=== PATIENT | male | born 1965 | race African-American/Black ===

== ENCOUNTER 2025-07-08 18:46 | Inpatient (IN) | payer OTHER ==
[~2025-07-08] VITALS: Ht 167.6 cm; Wt 50.8 kg
[~2025-07-08 18:46] MED LIST: NOCURR
[2025-07-08] MEDS: ATORVASTATIN CALCIUM 40 MG TABLET PO ONE (20:14)
[2025-07-08] MEDS: NITROGLYCERIN 0.4 MG SUBLINGUAL TABLET #25 SL ONE (20:15)
[2025-07-08] MEDS: ASPIRIN 81 MG CHEWABLE TABLET PO ONE (20:15)
[2025-07-08] MEDS ORDERED: 0.9% SODIUM CHLORIDE 10 ML SYRINGE IVP ONE (20:48)
[2025-07-08] MEDS ORDERED: SODIUM CHLORIDE 0.9% 100 ML ONE (20:48)
[2025-07-08] MEDS ORDERED: IOHEXOL 350 MG/ML 100 ML VIAL ONE (20:48)
[2025-07-08 20:50] LABS: PLATELET COUNT (AUTO) 184 K/uL (150-450); RED BLOOD CELL COUNT(AUTO) 3.89 MIL/uL (4.50-5.90); RED CELL DISTRIBUTION WIDTH 15.1 % (11.5-14.5); WHITE BLOOD COUNT (AUTO) 5.3 K/uL (4.5-11.0)
[2025-07-08 20:59] LABS: CALCIUM, TOTAL 9.0 mg/dL (8.8-10.5); CREATININE 1.13 mg/dL (0.60-1.30); GLOMERULAR FILTR. RATE CALC > 60 mL/min (>60); GLUCOSE,RANDOM 88 mg/dL (70-110); SODIUM SERUM 140 mmol/L (136-145); UREA NITROGEN, BLOOD 13 mg/dL (7-18)
[2025-07-08 21:08] LABS: TROPONIN I-HIGH SENSITIVITY 85 ng/L (<76)
[2025-07-08 21:09] LABS: ASPARTATE AMINOTRANSFERASE 34.0 U/L (15-37); CREATINE KINASE, TOTAL ONLY 113.0 U/L (39-308); TOTAL PROTEIN, SERUM 6.6 g/dL (6.4-8.2)
[2025-07-08 21:13] LABS: RBC MORPHOLOGY COMMENT ABNORMAL RBC MORPH
[2025-07-08] MEDS: ONDANSETRON HCL 4 MG/2 ML VIAL IVP ONE (21:48)
[2025-07-08] MEDS: MORPHINE SULFATE 4 MG/ML SYRINGE IVP ONE (21:48)
[2025-07-08] MEDS ORDERED: NITROGLYCERIN 0.4 MG SUBLINGUAL TABLET #25 SL PRN (22:15)
[2025-07-08] MEDS ORDERED: ONDANSETRON HCL 4 MG/2 ML VIAL IVP PRN (22:15)
[2025-07-08 22:40] LABS: TROPONIN I-HIGH SENSITIVITY 96 ng/L (<76)
[2025-07-08 23:01] LABS: COVID AG,FIA SOURCE NASAL SWAB
[2025-07-08 23:08] LABS: INFLUENZA TYPE A NEGATIVE FOR TYPE A (NEGATIVE); INFLUENZA TYPE B NEGATIVE FOR TYPE B (NEGATIVE); SARS-COV2 (COVID) ANTIGEN,FIA Negative (Negative)
[2025-07-08] MEDS: HEPARIN SODIUM,PORCINE 5,000 UNITS/ML VIAL SQ SCH (23:22)
[2025-07-09 03:00] VITALS: BP 147/87; PULSE 80; RESP 18; TEMP 98.6; O2SAT 99
[2025-07-09 03:44] LABS: APPEARANCE,URINE CLEAR (CLEAR); GLUCOSE, URINE (UA) NEGATIVE (NEGATIVE); LEUKOCYTE ESTERASE ,URINE NEGATIVE (NEGATIVE); NITRATE,URINE NEGATIVE (NEGATIVE); OCCULT BLOOD,URINE NEGATIVE (NEGATIVE)
[2025-07-09 03:45] LABS: SPECIFIC GRAVITIY, URINE 1.030 (1.003-1.030)
[2025-07-09 06:25] LABS: CALCIUM, TOTAL 8.9 mg/dL (8.8-10.5); CREATININE 1.24 mg/dL (0.60-1.30); GLOMERULAR FILTR. RATE CALC > 60 mL/min (>60); GLUCOSE,RANDOM 89 mg/dL (70-110); SODIUM SERUM 140 mmol/L (136-145); UREA NITROGEN, BLOOD 15 mg/dL (7-18)
[2025-07-09 06:57] LABS: TROPONIN I-HIGH SENSITIVITY 108 ng/L (<76)
[2025-07-09 07:27] LABS: PLATELET COUNT (AUTO) 181 K/uL (150-450); RED BLOOD CELL COUNT(AUTO) 3.84 MIL/uL (4.50-5.90); RED CELL DISTRIBUTION WIDTH 15.2 % (11.5-14.5); WHITE BLOOD COUNT (AUTO) 5.1 K/uL (4.5-11.0)
[2025-07-09 07:54] VITALS: BP 140/83; PULSE 91; RESP 20; TEMP 98.1; O2SAT 97
[2025-07-09] MEDS: ASPIRIN 81 MG CHEWABLE TABLET PO SCH (08:01)
[2025-07-09] MEDS: FUROSEMIDE 20 MG/2 ML VIAL IVP SCH ×2 (08:02→20:52)
[2025-07-09] MEDS: DOCUSATE SODIUM 100 MG CAPSULE PO SCH (08:02)
[2025-07-09 08:23] VITALS: BP 132/84; PULSE 82; RESP 18; TEMP 97.7; O2SAT 95
[2025-07-09 08:36] LABS: RBC MORPHOLOGY COMMENT ABNORMAL RBC MORPH
[2025-07-09 11:46] VITALS: BP 126/81; PULSE 78; RESP 18; TEMP 97.2; O2SAT 95
[2025-07-09 16:12] VITALS: BP 132/82; PULSE 76; RESP 18; TEMP 97.3; O2SAT 95
[2025-07-09 16:12] LABS: PH,URINE DRUG SCREEN 5.5 (5.0-8.0)
[2025-07-09 16:20] LABS: ALCOHOL, URINE DRUG SCREEN NEGATIVE (NEGATIVE); AMPHET/METH SCREEN,URINE NEGATIVE (NEGATIVE); BARBITURATE SCREEN, URINE NEGATIVE (NEGATIVE); CANNABINOID SCREEN,URINE POSITIVE (NEGATIVE); COCAINE SCREEN,URINE POSITIVE (NEGATIVE); METHADONE SCREEN, URINE NEGATIVE (NEGATIVE)
[2025-07-09 20:00] VITALS: BP 128/83; PULSE 90; RESP 20; TEMP 97.5; O2SAT 100
[2025-07-09] MEDS: ATORVASTATIN CALCIUM 10 MG TABLET PO SCH (20:51)
[2025-07-09] MEDS: MORPHINE SULFATE 2 MG/ML SYRINGE IVP PRN (20:52)
[2025-07-10 00:13] VITALS: BP_SYST 134; BP_DIAS 30; BP_DIAS 80; PULSE 93; RESP 18; TEMP 97.5; O2SAT 99
[2025-07-10 05:10] VITALS: BP 136/83; PULSE 85; RESP 18; TEMP 97.4; O2SAT 100
[2025-07-10 06:24] LABS: PLATELET COUNT (AUTO) 172 K/uL (150-450); RED BLOOD CELL COUNT(AUTO) 3.84 MIL/uL (4.50-5.90); RED CELL DISTRIBUTION WIDTH 15.1 % (11.5-14.5); WHITE BLOOD COUNT (AUTO) 4.1 K/uL (4.5-11.0)
[2025-07-10 06:33] LABS: CALCIUM, TOTAL 8.6 mg/dL (8.8-10.5); CREATININE 1.76 mg/dL (0.60-1.30); GLOMERULAR FILTR. RATE CALC 48.0 mL/min (>60); GLUCOSE,RANDOM 104.0 mg/dL (70-110); SODIUM SERUM 137.0 mmol/L (136-145); UREA NITROGEN, BLOOD 20.0 mg/dL (7-18)
[2025-07-10 06:35] LABS: CHOL/HDL RATIO 1.9 (4.2-7.3); LDL CHOL (CALC.) 38.0 mg/dL (0-130)
[2025-07-10 07:45] LABS: RBC MORPHOLOGY COMMENT ABNORMAL RBC MORPH
[2025-07-10 07:55] VITALS: BP 135/82; PULSE 82; RESP 18; TEMP 97.5; O2SAT 96
[2025-07-10 11:59] VITALS: BP 128/80; PULSE 84; RESP 18; TEMP 98; O2SAT 97
[2025-07-10] MEDS ORDERED: SESTAMIBI TC99M/UD ISOTOPE 1 EA INJ INJ ONE ×2 (14:30→16:10)
[2025-07-10 15:27] VITALS: BP 145/84; PULSE 91; RESP 19; TEMP 98.2; O2SAT 97
[2025-07-10] MEDS: REGADENOSON 0.4 MG/5 ML PF SYRINGE IVP ONE (16:50)
[2025-07-10] MEDS ORDERED: REGADENOSON 0.4 MG/5 ML PF SYRINGE IVP ONE (17:02)
[2025-07-10 20:13] VITALS: BP 130/95; PULSE 91; RESP 18; TEMP 98.2; O2SAT 98
[2025-07-11] VITALS (7 sets, daily range): BP systolic 115–129; BP diastolic 69–99; PULSE 78–88; RESP 18; TEMP 97.6–98.2; O2SAT 97–100
[2025-07-11 06:09] LABS: PLATELET COUNT (AUTO) 160 K/uL (150-450); RED BLOOD CELL COUNT(AUTO) 3.62 MIL/uL (4.50-5.90); RED CELL DISTRIBUTION WIDTH 14.8 % (11.5-14.5); WHITE BLOOD COUNT (AUTO) 5.1 K/uL (4.5-11.0)
[2025-07-11 06:25] LABS: CALCIUM, TOTAL 8.5 mg/dL (8.8-10.5); CREATININE 1.6 mg/dL (0.60-1.30); GLOMERULAR FILTR. RATE CALC 54.0 mL/min (>60); GLUCOSE,RANDOM 108.0 mg/dL (70-110); SODIUM SERUM 140.0 mmol/L (136-145); UREA NITROGEN, BLOOD 19.0 mg/dL (7-18)
[2025-07-11 06:39] LABS: RBC MORPHOLOGY COMMENT ABNORMAL RBC MORPH
[2025-07-11] MEDS: POTASSIUM CHLORIDE 20 MEQ ER TABLET PO ONE (08:08)
[2025-07-11] MEDS: ACETAMINOPHEN 325 MG TABLET PO PRN (10:12)
[2025-07-12 04:35] VITALS: BP 115/68; PULSE 86; RESP 18; TEMP 97.5; O2SAT 100
[2025-07-12] MEDS ORDERED: CARV3 PO (06:47)
[2025-07-12] MEDS ORDERED: LOSA-417 PO (06:47)
[2025-07-12] MEDS ORDERED: ASPI-1450 PO (06:47)
[2025-07-12] MEDS ORDERED: ATOR10TA69 PO (06:47)
[2025-07-12] MEDS ORDERED: SPIR-37 PO (06:47)
[2025-07-12 07:55] LABS: PLATELET COUNT (AUTO) 168 K/uL (150-450); RED BLOOD CELL COUNT(AUTO) 3.60 MIL/uL (4.50-5.90); RED CELL DISTRIBUTION WIDTH 14.7 % (11.5-14.5); WHITE BLOOD COUNT (AUTO) 4.3 K/uL (4.5-11.0)
[2025-07-12 08:02] LABS: CALCIUM, TOTAL 8.5 mg/dL (8.8-10.5); CREATININE 1.7 mg/dL (0.60-1.30); GLOMERULAR FILTR. RATE CALC 50.0 mL/min (>60); GLUCOSE,RANDOM 121.0 mg/dL (70-110); SODIUM SERUM 137.0 mmol/L (136-145); UREA NITROGEN, BLOOD 22.0 mg/dL (7-18)
[2025-07-12 08:07] LABS: ASPARTATE AMINOTRANSFERASE 22.0 U/L (15-37); TOTAL PROTEIN, SERUM 6.0 g/dL (6.4-8.2)
[2025-07-12] MEDS: SPIRONOLACTONE 25 MG TABLET PO SCH (08:11)
[2025-07-12] MEDS: LOSARTAN POTASSIUM 25 MG TABLET PO SCH (08:11)
[2025-07-12 08:19] VITALS: BP 125/83; PULSE 78; RESP 18; TEMP 97.5; O2SAT 98
[2025-07-12 11:27] VITALS: BP 121/68; PULSE 86; RESP 18; TEMP 98.1; O2SAT 95
[2025-07-12] MEDS: POTASSIUM CHLORIDE 20 MEQ ER TABLET PO ONE (11:47)
[2025-07-12] MEDS ORDERED: FURO20TA5 PO (12:58)
[2025-07-12 15:11] VITALS: BP 129/82; PULSE 82; RESP 18; TEMP 97.9; O2SAT 98
[2025-07-12] MEDS ORDERED: FUROSEMIDE 20 MG TABLET PO SCH (21:00)
== END 2025-07-12 19:50 | disposition short-term general hospital (02) | DRG 291 ==
LOC: EMS 18:46 → EDH 22:02 → 5S 07-09 03:00
PROVIDERS: ADMIT Internal Medicine; ATTEND Internal Medicine
DX: I50.21 Acute systolic (congestive) heart failure (principal); E43 Unspecified severe protein-calorie malnutrition; I42.9 Cardiomyopathy, unspecified; N17.9 Acute kidney failure, unspecified; Z68.1 Body mass index [BMI] 19.9 or less, adult; I70.0 Atherosclerosis of aorta; E87.6 Hypokalemia; F10.90 Alcohol use, unspecified, uncomplicated; Y90.9 Presence of alcohol in blood, level not specified; Z79.899 Other long term (current) drug therapy; Z87.891 Personal history of nicotine dependence; Z20.822 Contact with and (suspected) exposure to COVID-19
CPT/HCPCS: 71045; 71046; 74174; 74175; 78452; 80048; 80053; 80061; 80076; 80307; 81003; 82550; 83036; 83735; 83880; 84132; 84484; 85025; 85379; 87040; 87804; 93005; 93306; 93971; 99291; A9500; G0378; J1644; J1938; J2270; J2405; J2785; J7050; 36415-L1; 36415-TC